=== PATIENT | male | born 1960 | race Caucasian/White ===

== ENCOUNTER → 2017-11-02 08:19 | Outpatient (CLI) | payer MEDICARE ==
[2016-07-13 10:47] VITALS: BMI 24.4
[~2017-11-02 08:19] MED LIST: ASPIRIN325 MG PO; HYDROCODONE-APA1 TAB PO; ISOSORBIDE MONO30 M1 PO; NITROSTAT0.4 MG SL; PLAVIX75 MG PO; PRAVACHOL40 MG PO; TOPROL XL25 MG PO; ZESTRIL20 MG PO
== END | disposition home or self-care (01) ==
LOC: D.CT 08:19
DX: I71.4 Abdominal aortic aneurysm, without rupture (principal)

== ENCOUNTER → 2018-09-06 07:22 | Outpatient (CLI) | payer MEDICARE ==
[2016-07-13 10:47] VITALS: BMI 24.4
== END | disposition home or self-care (01) ==
LOC: D.CT 07:22
DX: I71.4 Abdominal aortic aneurysm, without rupture (principal)

== ENCOUNTER 2019-01-03 06:46 | Outpatient (CLI) | payer MEDICARE ==
--- NOTE | ~2019-01-03 | HEMODYNAMI ---
PATIENT:NOLAN CARREON MEDICAL RECORD: [id number] : 56 [id number] ADMISSION DATE: 01/03/19 Generatedon:01/03/201910:46 Patient name: NOLAN CARREON Patient #: [id number] SSN: : 1960 Date of study: 01/03/2019 Page: Of Hemodynamic Procedure Report Patient Data Patient Demographics Procedure consent was obtained First Name: NOLAN Gender: Male Last Name: LAURI : 1960 Middle Initial: CLARITZA Age: 58 year(s) Patient #: [id number] Race: Additional ID: [id number] Contact details [address]: [address] [place] [address] State: [place] City: [place] Zip code: [address] Past Medical History Allergies: No known allergies Admission Admission Data Admission Date: 01/03/2019 Admission Time: 6:46 Height (in.): 72 BSA: 2.13 (m2) Height (cm.): 182.88 BMI: 27.12 (kg/m2) Weight (lbs.): 200 Weight (kg.): 90.72 Procedure Procedure Types Cath Procedure Peripheral Cath Diagnostic Procedure Steeplechase Jockey Peripheral Procedures Abd/Extremity Extremities Left Lower Ext Arterio Procedure Description Procedure Date Procedure Date: 01/03/2019 Procedure Start Time: 9:17 Procedure Staff Name Function Steven Trejo MD Performing Physician Guerline Argueta RT Cushion Padder Estrella Haile RN Nurse Johanne Ellison RN Nurse Hema Leija RT Scrub Procedure Data Cath Procedure Fluoroscopy Diagnostic fluoroscopy Total fluoroscopy Time: time: 11.8 min 11.8 min Diagnostic fluoroscopy Total fluoroscopy dose: 120 dose: 120 mGy mGy Contrast Material Contrast Material Type Amount (ml) Isovue 300 65 Entry Location Entry Primary Successful Side Size Upsize Upsize Entry Closure Succes sful Closure Location (Fr) 1 (Fr) 2 (Fr) Remarks Device Remarks Femoral Exoseal artery Procedure Medications Medication Administration Route Dosage Heparin Flush Bag added to field 2 bags (1000units/500ml NS) Lidocaine 1% added to field 20 Fentanyl I.V. 50 mcg Versed I.V. 1 mg Heparin Bolus I.V. 4000 units Fentanyl I.V. 25 mcg Versed I.V. 0.5 mg Heparin Bolus I.V. 3000 units Nitroglycerin IC/IA I.A. 300 mcg Fentanyl I.V. 25 mcg Fentanyl I.V. 25 mcg Hemodynamics Rest BSA: 2.13 (m2) O2 Consumption: Estimated: 237.41 (ml/min) O2 Consumption indexed : Estimated:111.46 (ml/min/m) Heart Rate: 54 (bpm) Snapshots Pre Cath Intra NCS Post Cath Vital Signs Time Heart Resp SPO2 etCO2 NIBP (mmHg) Rhythm Pain Sedation Rate (ipm) (%) (mmHg) Status Level (bpm) 8:56:24 53 13 100 35.2 152/70(102) NSR 0 (11) 10(A) , No pain 9:00:48 55 19 100 10.4 148/61(118) NSR 0 (11) 10(A) , No pain 9:05:09 54 15 100 27.7 149/69(126) NSR 0 (11) 10(A) , No pain 9:10:08 54 22 100 26.2 Measuring NSR 0 (11) 10(A) , No pain 9:10:22 59 25 100 26.9 144/64(115) NSR 0 (11) 10(A) , No pain 9:14:38 65 20 100 23.9 150/77(119) NSR 0 (11) 10(A) , No pain 9:19:02 52 17 99 24.7 136/62(110) NSR 0 (11) 10(A) , No pain 9:24:01 60 16 100 20.9 147/71(118) NSR 0 (11) 10(A) , No pain 9:28:22 54 17 98 13.4 127/66(103) NSR 0 (11) 8(A) , No pain 9:32:36 51 16 97 0 120/63(91) NSR 0 (11) 8(A) , No pain 9:37:34 53 17 98 11.9 Measuring NSR 0 (11) 8(A) , No pain 9:37:47 51 18 98 13.4 128/55(100) NSR 0 (11) 8(A) , No pain 9:42:01 52 15 98 0 130/63(104) NSR 0 (11) 8(A) , No pain 9:46:17 52 17 98 0 125/60(98) NSR 0 (11) 8(A) , No pain 9:50:27 51 14 98 0 125/63(103) NSR 0 (11) 8(A) , No pain 9:54:41 54 13 96 0 113/63(94) NSR 0 (11) 8(A) , No pain 9:58:50 54 12 95 0 126/63(109) NSR 0 (11) 8(A) , No pain 10:03:05 56 16 97 0 127/65(88) NSR 0 (11) 8(A) , No pain 10:07:16 54 16 97 0 133/67(109) NSR 0 (11) 8(A) , No pain 10:11:28 52 13 97 0 127/64(103) NSR 0 (11) 8(A) , No pain 10:15:42 49 15 97 0 121/61(102) NSR 0 (11) 8(A) , No pain 10:20:41 49 19 98 0 Measuring NSR 0 (11) 8(A) , No pain 10:20:50 49 18 98 0 130/61(101) NSR 0 (11) 8(A) , No pain 10:25:08 50 17 98 0 135/59(108) NSR 0 (11) 8(A) , No pain 10:29:22 52 18 99 0 154/75(129) NSR 0 (11) 8(A) , No pain 10:33:25 52 12 99 0 129/73(108) NSR 0 (11) 8(A) , No pain 10:37:37 55 11 99 17.2 139/73(116) NSR 0 (11) 8(A) , No pain 10:41:55 53 17 98 29.2 152/64(127) NSR 0 (11) 8(A) , No pain 10:46:09 0 130/71(111) NSR 0 (11) 8(A) , No pain Medications Time Medication Route Dose Verified Delivered Reason Notes E ffectiveness by by 8:56:38 Heparin Flush added 2 bags Steven Harris used for Bag to Neil Trejo procedure (1000units/500ml field MD WALLIS NS) 8:56:51 Lidocaine 1% added 20ml Steven Harris for local to vial Neil Trejo anesthetic field MD [place]IS 9:24:54 Fentanyl I.V. 50 mcg Steven De La Rosa for sedation Neil Haile RN, MD 9:25:06 Versed I.V. 1 mg Steven De La Rosa for sedation Neil Haile RN, MD 9:32:23 Heparin Bolus I.V. 4000 Steven Choudhuryi used for units Neil esparza MD 9:47:09 Fentanyl I.V. 25 mcg Steven De La Rosa for sedation Neil Haile RN, MD 9:47:22 Versed I.V. 0.5 mg Steven De La Rosa for sedation Neil Haile RN, MD 9:58:29 Heparin Bolus I.V. 3000 Steven De La Rosa used for units Neil esparza MD 9:59:49 Nitroglycerin I.A. 300mcg Steven Harris for IC/IA Neil salcedo MD, MD 10:20:48 Fentanyl I.V. 25 mcg Steven Harris for sedation Neil Trejo MD, MD 10:28:38 Fentanyl I.V. 25 mcg Steven Harirs for sedation Neil Trejo MD, MD Procedure Log Time Note 8:35:55 Patient Height : 72 inches 8:35:59 Patient Weight : 200 lbs 8:38:15 BENTSON 145cm wire ([id number]) opened to sterile field. 8:38:16 Micropuncture VSI 4FR kit opened to sterile field. 8:38:17 SHEATH 5FR [place] (QFP052) opened to sterile field. 8:38:28 Use device set IR Diagnostic 8:38:30 Tegaderm 4 x 4 (1626W) opened to sterile field. 8:38:31 Sterile Angiographic Pack opened to sterile field. 8:38:32 Bag Decanter () opened to sterile field. 8:38:37 - 8:41:58 Time tracking: Regular hours (M-F 7:00 - 5:00) 8:43:43 Plan of Care:Hemodynamics will remain stable., Cardiac rhythm will remain stable., Comfort level will be maintained., Respiratory function will remain adequate., Patient/ family verbilizes understanding of procedure., Procedure tolerated without complication., Recovers from procedure without complications.. 8:43:49 Patient received from Outpatients to IR Alert and oriented. Tansferred to table in Supine position. 8:43:51 Correct patient and procedure confirmed by team. 8:43:58 Signed procedure consent form obtained from patient. 8:44:09 H&P Date Dictated: 01/03/2019 Within 30 days and on chart.. 8:44:11 Pre-procedure instructions explained to patient. 8:44:12 Pre-op teaching completed and patient verbalized understanding. 8:44:14 Family in waiting room. 8:44:18 Patient NPO since Midnight. 8:44:30 Patient allergic to No known allergies 8:44:33 Is the patient allergic to Iodine/contrast media? No. 8:44:36 Is patient on blood thinner?Yes 8:44:43 ACC The patient was administered the following blood thiners within the last 24 hours: ACCPlavix 8:44:46 Patient diabetic? No. 8:44:47 - 8:44:50 ----Pre-sedation anethsthesia assessment.---- 8:44:54 Previous problem with sedation/anesthesia? No ? 8:44:56 Snore? No 8:44:58 Sleep apnea? No 8:45:04 Deviated septum? No 8:45:07 Opens mouth fully? Yes 8:45:10 Sticks out tongue? Yes 8:45:30 Airway obstruction? No but has cad, heart stents 8:45:42 Dentures? Yes uppers in and fixed 8:45:46 - 8:46:00 IV patent on arrival in left hand with D5/.45%NaCl at KVO. 8:46:38 Left groin area was prepped with chlora-prep and draped in sterile fashion 8:46:41 - 8:55:06 Vital chart was started 8:56:38 Heparin Flush Bag (1000units/500ml NS) 2 bags added to field was administered by Steven Trejo MD; used for procedure; 8:56:51 Lidocaine 1% 20ml vial added to field was administered by Steven beach MD; for local anesthetic; 8:57:43 Pre procedure: right dorsailis pedis pulse Doppler 8:57:49 Pre procedure: left dorsailis pedis pulse Doppler 8:57:55 Pre procedure: right posterior tibial pulse 0-Absent 8:58:00 Pre procedure: left posterior tibial pulse 0-Absent 8:58:04 - 8:58:09 ECG and BP/O2 sat monitors applied to patient. 8:58:11 Baseline sample Acquired. 8:58:15 Full Disclosure recording started 8:58:18 - 9:16:37 Physician arrived 9:17:02 --------ALL STOP TIME OUT------ 9:17:03 Final Timeout: patient, procedure, and site verified with staff and physician. All members of the team are in agreement. 9:17:09 Procedure started. 9:17:15 Local anesthetic to left femerol artery with Lidocaine 1% by Steven Trejo MD.INITIAL ACCESS ONLY 9:24:54 Fentanyl 50 mcg I.V. was administered by Estrella Haile RN; for sedation; 9:25:06 Versed 1 mg I.V. was administered by Estrella Haile RN; for sedation; 9:32:23 Heparin Bolus 4000 units I.V. was administered by Estrella Haile RN; used for procedure; 9:33:59 [facility] .035 260 glide wire (Y62880) opened to sterile field. 9:34:00 CXI Catheter 90cm (R64279) opened to sterile field. 9:38:02 Cordis 6Fr BRITE TIP 11cm sheath opened to sterile field. 9:38:03 Sanders 180 wire (I37555) opened to sterile field. 9:40:02 CHOICE PT Extra Support J 300cm guide wire ([id number]) opened to steril e field. 9:40:09 INFLATOR BasixTOUCH (QU4274) opened to sterile field. 9:43:12 Inflate balloon Inflation number: 1 A CHOCOLATE 3.0 x 40 x 150 balloon ([id number]) was prepped and advanced across the Undefined1 , then inflated . 9:47:09 Fentanyl 25 mcg I.V. was administered by Estrella Haile RN; for sedation; 9:47:22 Versed 0.5 mg I.V. was administered by Estrella Haile RN; for sedation; 9:55:18 COPILOT Valve Control (3168940) opened to sterile field. 9:57:45 Inflate balloon Inflation number: 1 A CHOCOLATE 3.5 x 120 x 135 balloon ([id number]) was prepped and advanced across the Undefined2 , then inflated . 9:58:29 Heparin Bolus 3000 units I.V. was administered by Estrella Haile RN; used for procedure; 9:59:49 Nitroglycerin IC/IA 300mcg I.A. was administered by Steven Trejo MD; for vasodilation; 10:16:31 Hawkone Medium Atherectomy System (H1-M) opened to sterile field. 10:20:48 Fentanyl 25 mcg I.V. was administered by Steven Trejo MD; for sedation; 10:25:53 Inflate balloon Inflation number: 1 A IN.PACT Admiral 6 x 150 x 130 DCB balloon ([id number]) was prepped and advanced across the Undefined3 , then inflated . 10:28:38 Fentanyl 25 mcg I.V. was administered by Steven Trejo MD; for sedation; 10:31:38 EXOSEAL 6Fr (EX600) opened to sterile field. 10:32:21 A sheath was inserted into the Femoral artery 10:32:21 Sheath removed intact; hemostasis achieved with Exoseal to the Femoral artery. 10:32:27 Procedure ended.(Physican Out) 10:40:52 Fluoroscopy time 11.80 minutes. 10:40:56 Fluoroscopy dose: 120 mGy 10:40:56 Flurop Dose total: 120 10:41:01 Contrast amount:Isovue 300 65ml. 10:41:03 Procedure and supply charges have been captured, reviewed, submitted an d are correct. 10:46:05 Report given to Outpatients. 10:46:15 Patient transfered to Outpatients with Stretcher. 10:46:45 Vital chart was stopped Intervention Summary Intervention Notes Time ActionType Lesion and Equipment Used Action# Pressure Duration Attributes 9:43:12 Inflate Undefined1 CHOCOLATE 3.0 x 40 1 0 00:00 balloon x 150 balloon ([id number]) 9:57:45 Inflate Undefined2 CHOCOLATE 3.5 x 1 0 00:00 balloon 120 x 135 balloon ([id number]) 10:25:53 Inflate Undefined3 IN.PACT Admiral 6 1 0 00:00 balloon x 150 x 130 DCB balloon ([id number]) Device Usage Item Name Manufacture Quantity Catalog Number [facility] Minimal Lot# / Charge Number Stock Stock Serial# Code [facility] 145cm wire [employer] 1 [id number] 3476 77 5 ([id number]) Micropuncture VSI VSI VASCULAR 1 7266V 967820 2225 10 5 4FR kit SOLUTIONS SHEATH 5FR Terumo 1 [id number] 127250 154098 8156 43 5 [place] (IFX316) Tegaderm 4 x 4 3M 1 1626W 577325 939541 3836 54 5 (1626W) Sterile Cardinal 1 [id number] 984309 7502 38 5 Angiographic Pack Health Bag Decanter Microtek 1 955179 00035 9868 00 5 () [employer] .035 [employer] 1 S74873 491737 879746 4027 07 5 [id number] 260 glide wire (J51647) CXI Catheter 90cm [employer] 1 C22564 387154 667755 1894 12 5 0791325 (C21433) Cordis 6Fr BRITE Cardinal 1 [id number] 702388 8799 46 5 TIP 11cm sheath Health Sanders 180 wire [employer] 1 Y25178 945620 298693 5572 965 5 [id number] (N00209) CHOICE PT Extra Sultan 1 [id number] 079212 313052 2817 89 5 Support J 300cm Scientific guide wire ([id number]) INFLATOR Merit 1 CF0737 393314 252905 6687 68 5 [id number] [facility] Medical (FY4823) CHOCOLATE 3.0 x 40 Medtronic 1 [id number] 649917 157488 7363 97 5 [id number] x 150 balloon OTW [id number] ([id number]) [id number] COPILOT Valve Marie 1 6582376 639410 149489 6900 86 5 Control (9178717) Vascular CHOCOLATE 3.5 x Medtronic 1 [id number] 489058 152384 9739 98 5 [id number] 120 x 135 balloon O [id number] ([id number]) TW [id number] Hawkone Medium Medtronic 1 H1-M 429732 8349 9979 5 [id number] Atherectomy System (H1-M) IN.PACT Admiral 6 Medtronic 1 [id number] 876369 6531691 8369 70 5 [id number] x 150 x 130 DCB balloon ([id number]) EXOSEAL 6Fr Cardinal 1 EX600 942201 382527 6090 56 10 [id number] (EX600) Health Signature Audit [place] Stage Time Signature Unsigned Intra-Procedure 01/03/2019 Guerline Argueta 10:46:40 AM RT(R) [facility] [address] [place] [id number]
[2019-01-03 07:06] LABS: BASOPHILS 0.4 % (0-2); EOSINOPHILS 3.2 % (0-7); HEMATOCRIT 45.7 % (42.0-54.0); HEMOGLOBIN 15.8 g/dL (13.5-17.5); IMMATURE GRANULOCYTES 0.1 % (0-5); MCH 30.4 pg (26.0-34.0); MCHC 34.6 g/dL (31.0-37.0); MCV 87.9 fL (80.0-100.0); MEAN PLATELET VOLUME 12.1 fL (7.4-10.4); MONOCYTES 9.7 % (2-11); NEUTROPHILS 51.6 % (40-80); PLATELET COUNT 145 10x3/uL (130-400); RDW 13.6 % (11.5-14.5); WBC 7.1 10x3/uL (4.8-10.8)
[2019-01-03 07:19] LABS: APTT 25.9 SECONDS (22.8-39.4); PROTIME 12.7 SECONDS (11.6-15.0)
[2019-01-03 07:29] LABS: CALC OSMOLALITY 278 mosm/kg (275-300); CARBON DIOXIDE 25.4 mmol/L (21.0-32.0); CHLORIDE - SERUM 102 mmol/L (98-107); CREATININE - SERUM 0.9 mg/dL (0.6-1.3); GLUCOSE 116 mg/dL (74-106); POTASSIUM - SERUM 4.4 mmol/L (3.5-5.1); SODIUM 138 mmol/L (136-145); UREA NITROGEN 19 mg/dL (7-18); eGFR NON AFRICAN AMERICAN > 90 mL/min (90-120)
[2019-01-03 07:56] VITALS: BP 131/71; BMI 27.2
--- NOTE | 2019-01-03 11:14 | NUR ---
1100 SEE POST PROCEDURE CHECKLIST FOR VITAL SIGN TRENDS. TIME FRAME FOR TODAYS STAY GIVEN. 1115 NO BLEEDING NOR HEMATOMA, ICE PACK PROVIDED. FINGER FOOD DIET ORDERED.
--- NOTE | 2019-01-03 11:57 | NUR ---
1140 ROUNDS BY JAMARCUS LEA RN DC INSTS REVIEWED WITH PT BY HIM.
--- NOTE | 2019-01-03 15:20 | NUR ---
1500 UP TO BATHROOM TO URINATE. URINATED X1 SITE TO LEFT GROIN WITH A PEA SIZE SPOT OF DRAINAGE NOTED ON DRESSING. IV REMOVED AND PT DC HOME WITH INSTRUCTIONS
== END 2019-01-03 15:15 | disposition home or self-care (01) ==
LOC: D.SP 06:46 → D.RAD 09:00 → D.SP 09:00
PROVIDERS: ATTEND Radiology Diagnostic Radiology
DX: I70.212 Atherosclerosis of native arteries of extremities with intermittent claudication, left leg (principal); Z01.812 Encounter for preprocedural laboratory examination